=== PATIENT | male | born 1955 | race African-American/Black ===

== ENCOUNTER 2019-01-19 07:09 | Day surgery (SDC) | payer OTHER ==
[~2019-01-19 07:09] MED LIST: AMOX/K CLAV875 M1 PO; AMOXICILLIN/CL875 MG PO; BACTRIM DS1 TAB PO; BENZONATATE200 MG PO; CHERATUSSIN OR; CIPROFLOXACN500 MG PO; DILAUDID 2MG2 MG/TA1 PO; DILAUDID2 MG PO; PROVENTIL HFA IN; RAPAFLO8 MG PO; ROBITUSSIN AC10 ML PO; SMZ-TMP DS1 TAB PO; ZITHROMAX500 MG PO
[2019-01-19 09:58] VITALS: BP 118/66
== END 2019-01-19 10:24 | disposition home or self-care (01) | DRG 379 ==
LOC: ENDO 07:09 → ORM 10:45
PROVIDERS: ATTEND Internal Medicine Gastroenterology
PROC: 0DBL8ZX Excision of Transverse Colon, Via Natural or Artificial Opening Endoscopic, Diagnostic (ICD-10-PCS; principal; 2019-01-19)
PROC: 0DB48ZX Excision of Esophagogastric Junction, Via Natural or Artificial Opening Endoscopic, Diagnostic (ICD-10-PCS; 2019-01-19)
PROC: 0DB78ZX Excision of Stomach, Pylorus, Via Natural or Artificial Opening Endoscopic, Diagnostic (ICD-10-PCS; 2019-01-19)
DX: K57.31 Diverticulosis of large intestine without perforation or abscess with bleeding (principal); D12.3 Benign neoplasm of transverse colon; K63.5 Polyp of colon; K64.4 Residual hemorrhoidal skin tags; K64.8 Other hemorrhoids; K29.51 Unspecified chronic gastritis with bleeding; K44.9 Diaphragmatic hernia without obstruction or gangrene; B96.81 Helicobacter pylori [H. pylori] as the cause of diseases classified elsewhere